=== PATIENT | male | born 1970 | race American Indian/Alaskan Native ===

== ENCOUNTER 2016-04-04 14:18 | Emergency (ER) | payer OTHER ==
--- NOTE | 2016-04-04 19:09 | Emergency Department Report ---
Abscess Boil HPI - HPI Chief Complaint: Skin/Abscess/Foreign Body Stated Complaint: POSS BROKEN TAILBONE Time Seen by Provider: 04/04/16 19:02 Duration: 5 Days Location: Other (tailbone) Severity: Severe History: Yes Pain (tailbone), No Fever, No Purulent Drainage, No Numbness, No Foreign Body, No Previous History, No Insect Bite HPI: Patient here reports that he has tailbone pain 5 days. He said it started out as small pimple but has become larger and painful. Pain is 10 out of 10. Denies any fever or chills. He said he took [id number] pain medication but the patient is not subsided. Denies any nausea or vomiting. Denies any similar history. Pain is throbbing and achy. Home Medications: Previous Rx's Medication Instructions Recorded Last Taken Type Ibuprofen [Motrin] 600 mg PO Q8H PRN #15 tablet 04/04/16 Unknown Rx Sulfamethoxazole/Trimethoprim 1 each PO BID #20 tablet 04/04/16 Unknown Rx [Bactrim DS TAB] Allergies/Adverse Reactions: Allergies Allergy/AdvReac Type Severity Reaction Status Date / Time No Known Allergies Allergy Unverified 04/07/13 23:25 ED Review of Systems ROS: Stated complaint: POSS BROKEN TAILBONE Other details as noted in HPI Comment: All other systems reviewed and negative Constitutional: denies: chills, fever Respiratory: no symptoms reported Cardiovascular: denies: chest pain, palpitations, edema, syncope Gastrointestinal: denies: abdominal pain, nausea, vomiting, diarrhea Musculoskeletal: other (tailbone pain) Neurological: denies: headache ED Past Medical Hx - Past Medical History Previous Medical History?: No - Surgical History Past Surgical History?: No - Family History Family history: no significant - Social History Smoking Status: Never Smoker Substance Use Type: None - Medications Home Medications: Home Medications Medication Instructions Recorded Confirmed Last Taken Type Ibuprofen [Motrin] 600 mg PO Q8H PRN #15 tablet 04/04/16 Unknown Rx Sulfamethoxazole/Trimethoprim 1 each PO BID #20 tablet 04/04/16 Unknown Rx [Bactrim DS TAB] ED Abscess Boil Physical Exam - Exam General: Vital signs noted. No distress. Alert and acting appropriately. This is a 46-year-old male well-nourished well-developed in no acute distress. Size: 2 cm Exam: Yes Tenderness (left proximal inner buttocks), Yes Surrounding Cellulites/ Erythema (minimal erythema), Yes Normal Neurologic Exam, Yes Normal Circulation , No Fluctuance, No Lymphangitis, No Crepitation, No Heart Murmur Exam: Skin: Patient with 2 x 2 centimeter indurated, nonfluctuant area to left proximal inner buttocks. Mild erythema and tender to palpate. No drainage or point of entry noted. Lungs: Clear to auscultate bilaterally, no rhonchi wheezes or rales. Normal work of breathing. CV: S1, S2. Regular rate and rhythm. EXT:No C/C/E. +2 pulses I & D Note - I & D Note I & D Note: Patient with 2 x 2 cellulitic area to left buttocks. Positive induration and fluctuance. Unable to drain area at present. Tender to apply warm compresses to affected area 2-3 times a day and start antibiotic as prescribed. I instructed him that he can return in 4 days if are is not better for reevaluation. ED Course Vital Signs 04/04/16 15:57 Temperature 98.6 F Pulse Rate 99 H Respiratory 20 Rate Blood Pressure 145/91 O2 Sat by Pulse 99 Oximetry - Reevaluation(s) Reevaluation #1: 04/04/16 19:36 Patient received [place] 5/325 mg 2 tablets by mouth and Bactrim DS one tablet by mouth in emergency room. Critical care attestation.: If time is entered above; I have spent that time in minutes in the direct care of this critically ill patient, excluding procedure time. ED Medical Decision Making - Medical Decision Making ED course:Patient received norco 5/325 mg 2 tabs and Bactrim DS 1 tab in ED. I instructed patient that he has cellulitis to area and he will need to place warm compresses to site 2-3 times a day to facilitate drainage. I also instructed him that he will need to return to emergency room in 4 days for reevaluation and possible incision and drainage. He voiced understanding of discharge instruction and discharged home with his family with prescription for Motrin and Bactrim DS. ED Disposition Clinical Impression: Cellulitis of buttock, left Disposition: DISCHARGED TO HOME OR SELFCARE Is pt being admited?: No Does the pt Need Aspirin: No Condition: Stable Instructions: Cellulitis (ED) Additional Instructions: Please return to the emergency room in 4 days for reevaluation and possible incision and drainage. Please take antibiotic as prescribed Keep affected area clean and dry Warm compresses 2-3 times a day to affected area. Prescriptions: Ibuprofen [Motrin] 600 mg PO Q8H PRN #15 tablet PRN Reason: Pain Sulfamethoxazole/Trimethoprim [Bactrim DS TAB] 1 each PO BID #20 tablet Referrals: PRIMARY CARE, [Primary Care Provider] - 3-5 Days [facility] [Outside] - 3-5 Days Forms: Work/School Release Form(ED)
[2016-04-04] MEDS ORDERED: NORCO 5/325 PO ONE (19:10)
[2016-04-04] MEDS ORDERED: BACTRIM DS PO ONE (19:10)
[2016-04-04 21:15] VITALS: BP 138/72
== END 2016-04-04 20:20 | disposition home or self-care (01) ==
LOC: ED 14:18
DX: L03.317 Cellulitis of buttock (principal)
CPT/HCPCS: 99282